=== PATIENT | female | born 1980 | race Two or more races ===

== ENCOUNTER 2017-11-15 06:21 | Inpatient (IN) | payer OTHER | END 2017-11-18 14:53 | disposition HB | DRG 775 | LOC: LDR 06:21 → OB/GYN 11-16 02:14 | PROC: 4A1HXCZ Monitoring of Products of Conception, Cardiac Rate, External Approach (ICD-10-PCS; 2017-11-15) | PROC: 10E0XZZ Delivery of Products of Conception, External Approach (ICD-10-PCS; principal; 2017-11-16) | PROC: 0W8NXZZ Division of Female Perineum, External Approach (ICD-10-PCS; 2017-11-16) | PROC: 3E033VJ Introduction of Other Hormone into Peripheral Vein, Percutaneous Approach (ICD-10-PCS; 2017-11-16) | PROC: 4A033R1 Measurement of Arterial Saturation, Peripheral, Percutaneous Approach (ICD-10-PCS; 2017-11-16) | DX: O24.410 Gestational diabetes mellitus in pregnancy, diet controlled (principal); O34.13 Maternal care for benign tumor of corpus uteri, third trimester; Z37.0 Single live birth; D25.9 Leiomyoma of uterus, unspecified; Z3A.38 38 weeks gestation of pregnancy ==

== ENCOUNTER 2023-12-21 14:05 | Emergency (ER) | payer OTHER ==
[~2023-12-21] VITALS: Ht 170.2 cm; Wt 86.2 kg
[~2023-12-21 14:05] MED LIST: PRENATAL 19 TA1 EACH PO
[2023-12-21] MEDS ORDERED: DEXAMETHASONE SODIUM PHOSPHATE 4 MG/ML VIAL IM STA (15:25)
[2023-12-21] MEDS ORDERED: AUGMENTIN XR 11 EACH PO (19:05)
== END 2023-12-21 20:26 | disposition home or self-care (01) ==
LOC: ER 14:06
DX: J02.9 Acute pharyngitis, unspecified (principal)